=== PATIENT | male | born 1960 ===

== ENCOUNTER 2021-04-13 10:08 | Outpatient (CLI) | payer OTHER | END 2021-04-13 10:22 | disposition home or self-care (01) | LOC: RAD 10:08 | PROVIDERS: ATTEND Urology | DX: N20.0 Calculus of kidney (principal) ==

== ENCOUNTER 2023-09-24 15:20 | Outpatient (CLI) | payer OTHER | END 2023-09-24 15:33 | disposition home or self-care (01) | LOC: TOM 15:20 | PROVIDERS: ATTEND Specialist | DX: I63.50 Cerebral infarction due to unspecified occlusion or stenosis of unspecified cerebral artery (principal) ==